=== PATIENT | male | born 1935 | race Caucasian/White ===

== ENCOUNTER → 2018-10-03 | Outpatient (CLI) | payer MEDICARE, OTHER ==
[~2018-10-03] MED LIST: ACET-514; FLUT16SP17; HYDR-1666; HYDR2VIA; LEVO500P; METOCLOPRAMIDE HCL; PANT40VI7; TAMS-14; TETR15DR63; ZOLP5TAB; [UNRECOGNIZED DRUG - OTHER]
== END | disposition home or self-care (01) ==
LOC: RAD 09:35
PROVIDERS: ATTEND Internal Medicine
DX: R05 Cough (principal); M54.5 Low back pain
CPT/HCPCS: 71046; 72100

== ENCOUNTER 2018-11-01 09:42 | Emergency (ER) | payer MEDICARE, OTHER ==
[~2018-11-01] VITALS: Ht 162.6 cm; Wt 87.3 kg
[2018-11-01 09:50] VITALS: BP 160/90; PULSE 60; RESP 18; Ht 162.6 cm; Wt 87.3 kg
[2018-11-01] MEDS ORDERED: CIPR7.5D LEFT EAR (10:54)
--- NOTE | 2018-11-01 11:00 | ERD ---
ER Documentation Chief Complaint Chief Complaint left ear pain/itching HPI This is an 83-year-old gentleman who presents to the emergency room with complaint of left ear pain and itching x5 days. He was seen at a different provider yesterday and was prescribed antibiotic eardrops however he states they are not working and he is still having extreme itching and drainage from his ear. No other symptoms, no cellulitis, no fevers, no pharyngitis. Patient presents with a card for ENT [facility] however he has not seen those providers for his ear infection. Patient is hard of hearing and his better ear is the ear that has the infection. History and physical exam and plan of care discussion performed via healthcare interpreter services ROS All systems reviewed and are negative except as per history of present illness. Medications Home Meds Active Scripts Ciprofloxacin Hcl/Dexameth (Ciprodex Otic Suspension) 7.5 Ml Drops.susp, 3 DROP LEFT EAR BID for otitis externa for 7 Days, #7.5 ML Prov:MONICO MORENO [employer]ATION WASHER 11/01/18 Reported Medications Levofloxacin/Dextrose 5%-Water (Levaquin 500 Mg/100 Ml D5w) 500 Mg/0.1 L Piggyback 12/17/09 Dextrose/Sod Chloride* (D5-NS*) 1,000 Ml Iv.soln. 12/17/09 Zolpidem Tartrate* (Ambien*) 5 Mg Tablet 12/17/09 Hydrocodone Bit/Acetaminophen (Vicodin 5/500 Tablet) 1 Tab Tablet 12/17/09 [Metoclopramide Hcl] 5 MG/ML VIAL No Conflict Check 12/17/09 Hydromorphone Hcl (Hydromorphone Hcl) 2 Mg/Ml Vial 12/17/09 Acetaminophen (Acetaminophen) 325 Mg Tablet 12/17/09 Tetrahydrozoline Hcl* (Visine*) 15 Ml Drops 12/17/09 Tamsulosin Hcl* (Flomax*) 0.4 Mg Cap.sr.24h 12/17/09 Pantoprazole* (Protonix* IV) 40 Mg Soln 12/17/09 Fluticasone Propionate* (Fluticasone Propionate* Nasal) 16 Gm [place].susp 12/17/09 Allergies Allergies: Coded Allergies: No Known Drug Allergy (Verified Allergy, Unknown, 03/09/10) Uncoded Allergies: nkda (Allergy, Mild, 12/17/09) PMhx/Soc History of Surgery: No Anesthesia Reaction: No Hx Neurological Disorder: No Hx Respiratory Disorders: No Hx Cardiac Disorders: No Hx Psychiatric Problems: No Hx Miscellaneous Medical Probl: No Hx Alcohol Use: No Hx Substance Use: No Hx Tobacco Use: No Smoking Status: Never smoker FmHx hypertension Physical Exam Vitals Vital Signs Date Temp Pulse Resp B/P (MAP) Pulse Ox O2 O2 Flow FiO2 Time Delivery Rate 11/01/18 98.1 60 18 160/90 99 09:50 (113) Physical Exam Const: No acute distress Head: Atraumatic Eyes: Normal Conjunctiva ENT: No or post auricular lymphadenopathy or tenderness, left ear with purulent external otitis, eardrum not visible. Right ear with TM clear, pharynx pink, moist, no lesions, no exudate. Neck: Full range of motion. No meningismus. No lymphadenopathy Resp: Clear to auscultation bilaterally Cardio: Regular rate and rhythm, no murmurs Neur: Awake and alert, CNII-XII, EOMI Psych: Normal Mood and Affect Procedures/MDM PROCEDURES/MDM Ear Lavage to Left Ear: External ear canal cleared of purulent drainage and exudate. Post lavage TM visualized, clear, no redness, no bulging, no effusion. Patient's Polytrim antibiotic infused after cleansing, cottonball placed. Patient tolerated procedure well, states ear felt much improved after irrigation. MDM: Is an 83-year-old gentleman who presents emergency room with complaint of external otitis media x5 days. He has had treatment for 1 day with Polysporin which he states has not been working., Infusion of eardrops, use of cottonball, switching antibiotic to Ciprodex. Patient instructed on signs and symptoms of worsening of condition and when to return to the emergency room. Patient states he will call his ENT specialist today for appointment. This patients external otitis appears to be appropriate for outpatient treatment with close follow-up for reevaluation by a clinician within 24-48 hours. Exam and w/u not consistent w/ deep space infection of the face, throat, or mastoids. No evidence of impending TM rupture, airway compromise, or meningitis. A serious, rapidly progressive infectious process is unlikely based upon the patients presentation and appearance of the infection. Antibiotic treatment has been initiated here and response to treatment will be based on reassessment at close follow-up. The patient has been instructed on signs and symptoms of acute progression of infection and to return immediately if any of these occur. DISPOSITION and PLAN: RX: Ciprodex The patient has been discharge home to follow-up with community physician. Departure Diagnosis: Primary Impression: Otitis externa Otitis externa type: other infective Chronicity: acute Laterality: left Qualified Codes: H60.392 - Other infective otitis externa, left ear Condition: Stable Patient Instructions: External Ear Infection (Adult) Additional Instructions: Thank you very much for allowing us to participate in your care. Your health and safety is our top priority at [facility]. Call your primary care doctor TOMORROW for an appointment during the next 2-4 days and bring all the information and medications prescribed. Have prescriptions filled and follow precisely the directions on the label. If the symptoms get worse and your provider is unavailable, return to the Emergency Department immediately. CHANGE YOUR ANTIBIOTIC EARDROPS TO THE CIPRODEX PRESCRIBED TODAY 3 DROPS TWICE A DAY FOR 7 DAYS, YOU MAY TRY USING A COTTONBALL ON FOR COMFORT MAKE APPOINTMENT WITH YOUR ENT SPECIALIST DR. CACERES AT [facility] FOR FOLLOW-UP WITHIN THE NEXT 5 DAYS FOR REEVALUATION RETURN TO THIS ER WITH FEER, FACIAL PAIN, WORSENING OF INFECTION MONICO MORENO NP Nov 01, 2018 11:00
== END 2018-11-01 11:38 | disposition home or self-care (01) ==
LOC: FTE 09:42
DX: H60.392 Other infective otitis externa, left ear (principal)
CPT/HCPCS: 99283

== ENCOUNTER 2018-11-08 13:38 | Emergency (ER) | payer MEDICARE, OTHER ==
[~2018-11-08] VITALS: Ht 172.7 cm; Wt 86.7 kg
[~2018-11-08 13:38] MED LIST changes: +CIPR7.5D LEFT EAR
[2018-11-08 13:44] VITALS: BP 168/74; PULSE 62; RESP 18; Ht 172.7 cm; Wt 86.7 kg
--- NOTE | 2018-11-08 14:08 | ERD ---
ER Documentation Chief Complaint Chief Complaint left ear clogged HPI 83-year-old male presents for recheck after having been treated for otitis externa with ciprofloxacin drops for the past week. Patient states that he feels much better in his ears no longer feels clogged. Patient denies any ear pain, fevers, chills, difficulty hearing, discharge from the ear. States that he just finished his antibiotic drops. ROS All systems reviewed and are negative except as per history of present illness. Medications Home Meds Active Scripts Ciprofloxacin Hcl/Dexameth (Ciprodex Otic Suspension) 7.5 Ml Drops.susp, 3 DROP LEFT EAR BID for otitis externa for 7 Days, #7.5 ML Prov:MONICO MORENO GRAPHIC DESIGN INTERN 11/01/18 Reported Medications Levofloxacin/Dextrose 5%-Water (Levaquin 500 Mg/100 Ml D5w) 500 Mg/0.1 L Piggyback 12/17/09 Dextrose/Sod Chloride* (D5-NS*) 1,000 Ml Iv.soln. 12/17/09 Zolpidem Tartrate* (Ambien*) 5 Mg Tablet 12/17/09 Hydrocodone Bit/Acetaminophen (Vicodin 5/500 Tablet) 1 Tab Tablet 12/17/09 [Metoclopramide Hcl] 5 MG/ML VIAL No Conflict Check 12/17/09 Hydromorphone Hcl (Hydromorphone Hcl) 2 Mg/Ml Vial 12/17/09 Acetaminophen (Acetaminophen) 325 Mg Tablet 12/17/09 Tetrahydrozoline Hcl* (Visine*) 15 Ml Drops 12/17/09 Tamsulosin Hcl* (Flomax*) 0.4 Mg Cap.sr.24h 12/17/09 Pantoprazole* (Protonix* IV) 40 Mg Soln 12/17/09 Fluticasone Propionate* (Fluticasone Propionate* Nasal) 16 Gm [place].susp 12/17/09 Allergies Allergies: Coded Allergies: No Known Drug Allergy (Verified Allergy, Unknown, 03/09/10) Uncoded Allergies: nkda (Allergy, Mild, 12/17/09) PMhx/Soc History of Surgery: No Anesthesia Reaction: No Hx Neurological Disorder: No Hx Respiratory Disorders: No Hx Cardiac Disorders: No Hx Psychiatric Problems: No Hx Miscellaneous Medical Probl: No Hx Alcohol Use: No Hx Substance Use: No Hx Tobacco Use: No Smoking Status: Never smoker FmHx Family History: No diabetes, No coronary disease, No other Physical Exam Vitals Vital Signs Date Temp Pulse Resp B/P (MAP) Pulse Ox O2 O2 Flow FiO2 Time Delivery Rate 11/08/18 98.2 62 18 168/74 95 13:44 (105) Physical Exam Const: No acute distress Head: Atraumatic Eyes: Normal Conjunctiva ENT: Normal External Ears, Nose and Mouth. TMs are nonedematous erythematous with no bulging bilaterally. Ear canals are patent and clear there is no erythema or bulging discharge noted in the canals. Mastoids are nonedematous erythematous bilaterally with no tenderness to palpation. Neck: Full range of motion. No meningismus. Resp: Clear to auscultation bilaterally Cardio: Regular rate and rhythm, no murmurs Abd: Soft, non tender, non distended. Normal bowel sounds Skin: No petechiae or rashes Back: No midline or flank tenderness Ext: No cyanosis, or edema Neur: Awake and alert Psych: Normal Mood and Affect Procedures/MDM MDM: Patient's otitis externa appears to have resolved without complication. Based on patient's history and exam I feel comfortable discharging patient without the need for further medicines or antibiotics. Low suspicion for acute otitis media, mastoiditis, malignant otitis externa, ruptured TM, or any other emergent condition. At this time, patient is stable for discharge and outpatient management. I have instructed the patient to follow-up with his/her primary care physician in 1-2 days. I have discussed with the patient the possibility of needing to see a specialist for further workup and imaging studies if symptoms persist. I have instructed the patient to promptly return to the ER for any new or worsening symptoms including but not limited to increased pain, fever, nausea, vomiting, weakness or LOC. The patient and/or family expressed understanding of and agreement with this plan. All questions were answered. Home care instructions were provided. Communication with patient both during the exam and instructions for discharge were performed with using a personal lines account manager . Patient gave verbal confirmation to the practitioner, through the personal lines account manager, that they understood everythign that was being said to them. DISCLAIMER: Inadvertent spelling and grammatical errors are likely due to EHR/dictation software use and do not reflect on the overall quality of patient care. Also, please note that the electronic time recorded on this note does not necessarily reflect the actual time of the patient encounter. Departure Diagnosis: Primary Impression: Otitis externa Condition: SAMEERA Woods Nov 08, 2018 14:07
== END 2018-11-08 14:29 | disposition home or self-care (01) ==
LOC: FTE 13:38
DX: H60.90 Unspecified otitis externa, unspecified ear (principal)
CPT/HCPCS: 99282